=== PATIENT | female | born 1990 | race Caucasian/White ===

== ENCOUNTER 2021-09-30 19:34 | Emergency (ER) | payer OTHER ==
[~2021-09-30] VITALS: Ht 157.5 cm; Wt 62.6 kg
--- NOTE | 2021-09-30 21:12 | NUR ---
TO ER BED 10. BIBS C/O OF FACE PAIN X 2 MONTHS. PT STATES "FEELS A PULLING/NUMB ON LEFT EAR CHEEK AREA". HAS NOT SEEKED MEDICAL CARE. HAS NOT ATTEMPTED OTC MEDS FOR RELIEF. V/S STABLE. AWAITING MD ANGUIANO
--- NOTE | 2021-09-30 22:19 | NUR ---
SCREENING WEIVER FORM OBTAINED
--- NOTE | 2021-09-30 22:32 | NUR ---
PT TAKEN FOR CT SCAN
--- NOTE | 2021-09-30 23:21 | NUR ---
Patient discharged to home in stable condition. Written and verbal after care instructions given. Patient verbalizes understanding of instruction.
[2021-09-30 23:22] VITALS: BP 140/98
== END 2021-09-30 23:22 | disposition home or self-care (01) ==
LOC: ER 19:40
DX: G44.009 Cluster headache syndrome, unspecified, not intractable (principal); G50.1 Atypical facial pain
CPT/HCPCS: 70450-TC; 72125-TC